=== PATIENT | male | born 1945 | race Caucasian/White ===

== ENCOUNTER → 2019-02-11 | Outpatient (CLI) | payer MEDICARE, OTHER ==
[~2019-02-11] MED LIST: AMLO10TA8 PO; ASPI1CPM PO; DOXA2TAB2 PO
--- NOTE | 2019-02-11 13:51 | RAD ---
Ultrasound-guided transrectal placement of prostatic fiducial markers 02/11/2019 INDICATION: Prostate cancer COMPARISON STUDY: None Discussion: Discussion: The risks and benefits of the procedure, including but not limited to, bleeding and infection were discussed patient. Informed consent was obtained. The patient was brought to the ultrasound suite and placed in the left lateral decubitus position.. A timeout procedure was performed. Transvaginal ultrasound imaging delineated the prostate gland. 3 fiducial markers were placed. The ultrasound probe was removed. No immediate complication is identified. The patient tolerated the procedure well. Impression: Ultrasound-guided transrectal placement of prostatic fiducial markers Electronically signed by: Dean Jones MD (02/11/2019 1:48 PM) [id number]
== END ==
LOC: US 08:31
PROVIDERS: ATTEND Radiology Radiation Oncology
DX: C61 Malignant neoplasm of prostate (principal)
CPT/HCPCS: 55876; 77387